=== PATIENT | male | born 1990 | race Caucasian/White ===

== ENCOUNTER 2025-06-10 11:27 | Emergency (ER) | payer OTHER ==
[~2025-06-10] VITALS: Ht 175.3 cm; Wt 90.0 kg
[~2025-06-10 11:27] MED LIST: POSA100T2 PO
[2025-06-10 11:49] VITALS: BP 132/87; PULSE 67; RESP 18; TEMP 98.1; O2SAT 97
[2025-06-10 13:12] LABS: CALCIUM, TOTAL 9.9 mg/dL (8.8-10.5); CREATININE 0.93 mg/dL (0.60-1.30); GLOMERULAR FILTR. RATE CALC > 60 mL/min (>60); GLUCOSE,RANDOM 101 mg/dL (70-110); SODIUM SERUM 141 mmol/L (136-145); UREA NITROGEN, BLOOD 9 mg/dL (7-18)
[2025-06-10 13:18] LABS: ASPARTATE AMINOTRANSFERASE 21.0 U/L (15-37); TOTAL PROTEIN, SERUM 8.9 g/dL (6.4-8.2)
[2025-06-10 13:29] LABS: PLATELET COUNT (AUTO) 216 K/uL (150-450); RED BLOOD CELL COUNT(AUTO) 5.43 MIL/uL (4.50-5.90); RED CELL DISTRIBUTION WIDTH 14.1 % (11.5-14.5); WHITE BLOOD COUNT (AUTO) 6.5 K/uL (4.5-11.0)
[2025-06-10 13:38] LABS: ERYTHROCYTE SEDIMENTATION RATE 5 MM/HR (0-15)
== END 2025-06-10 19:27 ==
LOC: EMS 11:29
DX: R51.9 Headache, unspecified (principal); H53.8 Other visual disturbances; Z98.2 Presence of cerebrospinal fluid drainage device; Z79.899 Other long term (current) drug therapy
CPT/HCPCS: 70250; 70450; 74022; 80048; 80076; 85025; 85610; 85651; 99284